=== PATIENT | male | born 1980 | race Two or more races ===

== ENCOUNTER 2019-01-29 21:12 | Emergency (ER) | payer SELFPAY ==
[2019-01-29] MEDS ORDERED: DIPH/PERTUSS(ACELL)/TETANUS VAC/PF 0.5 ML SYR (>=10YO) IM ONE (22:20)
[2019-01-30] MEDS ORDERED: LEVOFLOXACIN 750 MG TABLET PO ONE
--- NOTE | 2019-01-30 00:03 | ER Document Report ---
ED General - General Chief Complaint: Puncture Wound to Foot Stated Complaint: FEET PAIN Time Seen by Provider: 01/29/19 23:45 Primary Care Provider: HILLARY LEÓN MD [COMMUNITY BASED STAFF] - Follow up in 3-5 days Notes: Patient is a 38-year-old male diabetic that presents to the emergency department for chief complaint of puncture wounds to the feet. Patient states that he had stepped on a few nails by accident, and he did not feel them due to his diabetic neuropathy, 1 of him was in his foot for a few hours before he noticed that and had it removed. He was seen at urgent care, and given Rocephin, and started on Bactrim, this occurred on Friday afternoon, he states that his right foot, has been swollen and a little bit red since then so he decided come to the emergency department. He states he is not up-to-date with his tetanus does not recall the last when he did not get one at urgent care. He states he has not been able to keep down all the antibiotics due to nausea, and he had some vomiting associated as well. He denies noting any fevers, but did feel that he was a little bit hot, but denies chills. Denies any chest pain, shortness of breath, difficulty breathing, has not noticed any redness streaking up his leg, but the foot is red and swollen. He did clean the wounds at home, has not noticed any drainage from them. Past Medical History: Diabetes mellitus, peripheral neuropathy Past Surgical History: Hand surgery Social History: Denies tobacco, alcohol or drug use. Family History: Reviewed and noncontributory for presenting illness Allergies: Reviewed, see documented allergy list. REVIEW OF SYSTEMS: Other than noted above, the 12 point review of systems was reviewed with the patient and were negative, all pertinent findings are included in the HPI. PHYSICAL EXAMINATION: Vital signs reviewed, nursing noted reviewed. GENERAL: Well-appearing, well-nourished and in no acute distress. HEAD: Atraumatic, normocephalic. EYES: Eyes appear normal, extraocular movements intact, sclera anicteric, conjunctiva are normal. ENT: nares patent, oropharynx clear without exudates. Moist mucous membranes. NECK: Normal range of motion, supple without lymphadenopathy LUNGS: Breath sounds clear to auscultation bilaterally and equal. No wheezes rales or rhonchi. HEART: Regular rate and rhythm without murmurs ABDOMEN: Soft, nontender, normoactive bowel sounds. No rebound, guarding, or rigidity. No masses appreciated. EXTREMITIES: Both feet have small puncture wounds noted on the plantar aspect, that measure only a few millimeters in diameter, there is erythema and mild edema noted to the right foot, without lymphangitis up the leg, there is no leg swelling noted. The left lower extremity aside from his puncture wound is unremarkable. No drainage noted. The rest of his extremity exam is grossly unremarkable. NEUROLOGICAL: No focal neurological deficits. Moves all extremities spontaneously Motor and sensory grossly intact on exam. PSYCH: Normal mood, normal affect. SKIN: Warm, Dry, normal turgor, no rashes or lesions noted on exposed skin TRAVEL OUTSIDE OF THE [place] IN LAST 30 DAYS: No - Related Data Allergies/Adverse Reactions: No Known Allergies Allergy (Verified 03/02/13 15:51) Past Medical History - Social History Smoking Status: Never Smoker Family History: None, Reviewed & Not Pertinent Pulmonary Medical History: Denies: Hx Tuberculosis Endocrine Medical History: Reports: Hx Diabetes Mellitus Type 1 Renal/ Medical History: Reports: Hx Benign Prostatic Hyperplasia Past Surgical History: Denies: Hx Pacemaker - Immunizations Hx Diphtheria, Pertussis, Tetanus Vaccination: Yes Physical Exam - Vital signs Vitals: Temp Pulse Resp BP Pulse Ox 98.4 F 98 18 121/73 100 01/29/19 21:21 01/29/19 21:21 01/29/19 21:21 01/29/19 21:21 01/29/19 21:21 Course - Re-evaluation Re-evalutation: Patient seen and examined vital signs reviewed. imaging were ordered as appropriate for the patient's presenting symptoms and complaint, with consideration of any critical or life threatening conditions that may be associated with their obtained history and exam as noted above. Patient was treated with Levaquin 750 mg p.o. Results were reviewed when available and demonstrated x-rays demonstrated foreign body, but not in the area of where the patient's puncture wounds were, likely remote. Bones intact, no evidence of osteomyelitis. The patient was re-evaluated and was stable, will prescribe him Levaquin for 7 additional days, advised to discontinue the Bactrim, switching to a pseudomonal coverage, because he was wearing a shoe when this injury occurred. Patient was advised however that this could cause some hypoglycemia, and to monitor his blood sugars, due to the lawrence quinolone, and is also to monitor for any worsening of his symptoms and advised to return to the emergency department if his symptoms worsen, he is otherwise advised to follow-up with primary care. Evaluation was most consistent with cellulitis of the right foot, and puncture wounds. Results were discussed with the patient at this point, after careful consideration I feel that that patient can be discharged from the emergency department, the patient was educated treatments and reasons to return to the emergency department based on their presumed diagnosis as noted above, they were advised to followup with a primary care physician in 2-3 days. Patient was agreeable to plan of care. *Note is created using voice recognition software and may contain spelling, syntax or grammatical errors. Foot X-Ray 01/29/19 23:57 IMPRESSION: 1. No acute fracture 2. Small hyperdense foreign body in the soft tissues medial to the left posterior subtalar joint. 3. No foreign bodies in the right foot - Vital Signs Vital signs: Temp Pulse Resp BP Pulse Ox 98.1 F 89 17 112/72 100 01/30/19 01:56 01/30/19 01:56 01/30/19 01:56 01/30/19 01:56 01/30/19 01:56 Discharge - Discharge Clinical Impression: Puncture wound Cellulitis Qualifiers: Site of cellulitis: extremity Site of cellulitis of extremity: lower extremity Laterality: right Qualified Code(s): L03.115 - Cellulitis of right lower limb Condition: Stable Disposition: HOME, SELF-CARE Instructions: Puncture Wound ([facility]), Tetanus Immunization Given ([facility]) Additional Instructions: Please monitor your feet, check them at least once daily, to see if you are having any worsening swelling or redness, particular if you notice streaking up your leg, if you develop fever, or worsening symptoms or pain, do not hesitate to return to the emergency department, please call your primary care physician's office first thing on Friday to schedule an appointment to be seen. Please complete the entire course of antibiotics as directed. Prescriptions: Levofloxacin [Levaquin 750 mg Tablet] 750 mg PO DAILY #7 tablet Referrals: HILLARY LEÓN MD [COMMUNITY BASED STAFF] - Follow up in 3-5 days
--- NOTE | 2019-01-30 00:46 | RADIOLOGY REPORT (SQ) ---
EXAM DESCRIPTION: [facility]Lex: XR FOOT 3 OR MORE VIEWS BILATERAL Views: 3 views of each foot CLINICAL HISTORY: 38 years Male, puncture wounds both feet, nail. heel left foot and great toe of right foot COMPARISON: None. FINDINGS: Left: A triangular foreign body approximately 4 mm diameter projects in the soft tissues medial to the posterior subtalar joint. No soft tissue air. No acute fracture or dislocation. No focal cortical defects or periosteal reaction. Mild vascular calcifications are noted. Right: Negative for acute fracture, dislocation, or radiopaque foreign body. IMPRESSION: 1. No acute fracture 2. Small hyperdense foreign body in the soft tissues medial to the left posterior subtalar joint. 3. No foreign bodies in the right foot
[2019-01-30 01:57] VITALS: BP 112/72
== END 2019-01-30 01:57 | disposition home or self-care (01) ==
LOC: ER 21:12
DX: L03.115 Cellulitis of right lower limb (principal); S91.332A Puncture wound without foreign body, left foot, initial encounter; S91.331A Puncture wound without foreign body, right foot, initial encounter; W22.09XA Striking against other stationary object, initial encounter; E10.9 Type 1 diabetes mellitus without complications
CPT/HCPCS: 90471; 90715; 99283

== ENCOUNTER 2019-05-16 22:25 | Emergency (ER) | payer SELFPAY ==
[2019-05-16 23:16] LABS: ABSOLUTE EOSINOPHILS # (AUTO) 0.2 10^3/uL (0.0-0.6); ABSOLUTE LYMPHOCYTES (AUTO) 1.9 10^3/uL (0.5-4.7); ABSOLUTE MONOCYTES (AUTO) 0.4 10^3/uL (0.1-1.4); ABSOLUTE NEUT (AUTO) 6.5 10^3/uL (1.7-8.2); BASOPHILS % (AUTO) 0.5 % (0-2); HEMATOCRIT 38.1 % (37.9-51.0); HEMOGLOBIN 13.2 g/dL (13.5-17.0); LYMPHOCYTES % (AUTO) 21.1 % (13-45); MEAN CORPUSCULAR HGB CONC 34.6 g/dL (32.0-36.0); MEAN CORPUSCULAR VOLUME 87 fl (80-97); MONOCYTES % (AUTO) 4.8 % (3-13); PLATELET COUNT 243 10^3/uL (150-450); RED BLOOD COUNT 4.39 10^6/uL (4.35-5.55); RED CELL DISTRIBUTION WIDTH 13.1 % (11.5-14.0); SEGMENTED NEUTROPHILS % (AUTO) 71.6 % (42-78); TOTAL CELLS COUNTED % (AUTO) 100 %; WHITE BLOOD COUNT 9.1 10^3/uL (4.0-10.5)
[2019-05-16 23:35] LABS: ALBUMIN 3.2 g/dL (3.5-5.0); ALKALINE PHOSPHATASE 106 U/L (38-126); ANION GAP 9 (5-19); ASPARTATE AMINO TRANSFERASE 20 U/L (17-59); BILIRUBIN,TOTAL 0.4 mg/dL (0.2-1.3); BLOOD UREA NITROGEN 13 mg/dL (7-20); CARBON DIOXIDE 26 mmol/L (22-30); CHLORIDE 104 mmol/L (98-107); GLUCOSE 219 mg/dL (75-110); POTASSIUM 3.2 mmol/L (3.6-5.0); TOTAL PROTEIN 6.2 g/dL (6.3-8.2)
[2019-05-16 23:36] LABS: ALCOHOL < 10 mg/dL (NONE DETECTED)
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
[2019-05-16] MEDS ORDERED: NORMAL SALINE 1000 ML 1,000 ML IV ONE (23:45)
[2019-05-16] MEDS ORDERED: POTASSIUM CHLORIDE 10 MEQ TABLET.ER PO ONE (23:46)
[2019-05-17 00:16] LABS: APPEARANCE,URINE CLEAR; BILIRUBIN,URINE NEGATIVE (NEGATIVE); COLOR,URINE STRAW; GLUCOSE, URINE >=500 mg/dL (NEGATIVE); KETONES,URINE NEGATIVE (NEGATIVE); LEUKOCYTE ESTERASE,URINE NEGATIVE (NEGATIVE); NITRITE,URINE NEGATIVE (NEGATIVE); PROTEIN,URINE NEGATIVE (NEGATIVE); URINE SPECIFIC GRAVITY 1.017; UROBILINOGEN,URINE NEGATIVE mg/dL (<2.0)
[2019-05-17 00:36] LABS: URINE AMPHETAMINES SCREEN NEGATIVE; URINE BARBITURATES SCREEN NEGATIVE; URINE BENZODIAZEPINES SCREEN NEGATIVE; URINE COCAINE SCREEN NEGATIVE; URINE MARIJUANA (THC) SCREEN NEGATIVE; URINE METHADONE SCREEN NEGATIVE; URINE PHENCYCLIDINE SCREEN NEGATIVE
--- NOTE | 2019-05-17 00:42 | RADIOLOGY REPORT (SQ) ---
EXAM DESCRIPTION: X-ray two view chest. CLINICAL HISTORY: 38 years Male, Shortness of breath COMPARISON: 01/22/2012 TECHNIQUE: PA and Lateral views of the chest performed on 05/17/2019 at 12:21 AM FINDINGS: The lungs are well expanded and are clear. The costophrenic sulci are clear. There is no evidence of a pneumothorax. The cardiac silhouette is normal in size. The mediastinal contours are normal. No acute osseous abnormalities are identified. No focal soft tissue abnormalities are identified. IMPRESSION: No evidence of acute intrathoracic disease.
[2019-05-17] MEDS ORDERED: POTASSIUM CHLORIDE 10 MEQ TABLET.ER PO ONE (01:21)
[2019-05-17 05:31] VITALS: BP 138/83
--- NOTE | 2019-05-17 06:43 | EKG REPORT ---
SEVERITY:- NORMAL ECG - SINUS RHYTHM : Confirmed by: Lefty Abbott MD 17-May-2019 06:42:52
--- NOTE | 2019-05-18 22:36 | EKG REPORT ---
SEVERITY:- OTHERWISE NORMAL ECG - SINUS TACHYCARDIA LOW VOLTAGE IN FRONTAL LEADS : Confirmed by: Memo Arceo 18-May-2019 22:35:45
== END 2019-05-17 05:40 | disposition home or self-care (01) ==
LOC: ER 22:25
DX: E10.9 Type 1 diabetes mellitus without complications (principal); R55 Syncope and collapse; E87.6 Hypokalemia; R41.82 Altered mental status, unspecified; R11.0 Nausea; Z79.4 Long term (current) use of insulin
CPT/HCPCS: 93005; 99284; 96360; 36415; 82962; 80307 ×2; 82550; 83735; 85025; 80053; 81001; 84484; 71046; 93010; J7030

== ENCOUNTER 2020-04-01 18:38 | Emergency (ER) | payer SELFPAY ==
[~2020-04-01 18:38] MED LIST: ASPIRIN 81 MG TABLET, CHEWABLE ONE; CLOPIDOGREL BISULFATE 300 MG TABLET ONE; ENOXAPARIN SODIUM INJ 30 MG/0.3 ML DISP.SYRIN ONE; NITROGLYCERIN 0.4 MG/TAB 25 TAB/BOTTLE ONE; TENECTEPLASE INJ 50 MG KIT IV ONE
[2020-04-01] MEDS ORDERED: NITROGLYCERIN/D5W 50 MG/250 ML RTUINJ IV PRN (19:04)
[2020-04-01] MEDS ORDERED: MORPHINE SULFATE 10 MG/ML INJ IV ONE (19:05)
[2020-04-01] MEDS ORDERED: ONDANSETRON HCL INJ/PF 4 MG/2 ML SDV IV ONE (19:05)
--- NOTE | 2020-04-01 19:11 | ER Document Report ---
ED Cardiac - General Chief Complaint: Chest Pain Stated Complaint: CHEST PAIN/SHORTNESS OF BREATH Time Seen by Provider: 04/01/20 19:04 Mode of Arrival: Wheelchair Information source: Patient, Relative Notes: 39-year-old [place] male arrives by POV with his Pat who is main historian. Patient had an DE here 2 to 3 years ago here in [place]. He also had a stent placed while in [place] 2017. Both his mother and father have a significant heart history. Patient is a IDDM and takes Lantus 20 units daily. Patient has no history of hypertension. His reports no steroid use no Viagra Levitra or Cialis or any cocaine use or illegal anabolic's. Patient works on a [employer]. 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 Patient's vital signs are heart rate 112 tachycardia blood pressure 152/96 he is satting 90% on 2 L. He has 13 respirations per minute. Patient speaks good Portuguese. Patient advises his chest pain is left chest radiating to his left scapula and down his left a rm. He is a non-smoker nondrinker This patient complained of 10 out of 10 pain upon arrival and after medications at 1930 he has 4 out of 10 pain. He appears much more comfortable. TRAVEL OUTSIDE OF THE [place] IN LAST 30 DAYS: No - HPI Patient complains to provider of: Chest pain - Related Data Allergies/Adverse Reactions: No Known Allergies Allergy (Verified 05/16/19 22:46) Past Medical History - General Information source: Patient - Social History Smoking Status: Unknown if Ever Smoked Cigarette use (# per day): No Chew tobacco use (# tins/day): No Smoking Education Provided: No Frequency of alcohol use: None - to take Drug Abuse: None Family History: None, Reviewed & Not Pertinent Patient has suicidal ideation: No Patient has homicidal ideation: No Pulmonary Medical History: Denies: Hx Tuberculosis Endocrine Medical History: Reports: Hx Diabetes Mellitus Type 1 Renal/ Medical History: Reports: Hx Benign Prostatic Hyperplasia Past Surgical History: Reports: Hx Cardiac Catheterization. Denies: Hx Pacemaker - Immunizations Hx Diphtheria, Pertussis, Tetanus Vaccination: Yes Physical Exam - Vital signs Vitals: Resp BP Pulse Ox 18 152/96 H 100 04/01/20 19:05 04/01/20 19:05 04/01/20 19:05 Interpretation: Normal - General General appearance: Appears well, Alert - HEENT Head: Normocephalic, Atraumatic Eyes: Normal Pupils: PERRL - Respiratory Respiratory status: No respiratory distress Chest status: Nontender Breath sounds: Normal Chest palpation: Normal - Cardiovascular Rhythm: Regular Heart sounds: Normal auscultation Murmur: No - Abdominal Inspection: Normal Distension: No distension Bowel sounds: Normal Tenderness: Nontender Organomegaly: No organomegaly - Back Back: Normal, Nontender - Extremities General upper extremity: Normal inspection, Nontender, Normal color, Normal ROM, Normal temperature General lower extremity: Normal inspection, Nontender, Normal color, Normal ROM, Normal temperature, Normal weight bearing. No: Juan Miguel's sign - Neurological Neuro grossly intact: Yes Cognition: Normal Orientation: AAOx4 [place] Coma Scale Eye Opening: Spontaneous [place] Coma Scale Verbal: Oriented [place] Coma Scale Motor: Obeys Commands [place] Coma Scale Total: 15 Speech: Normal Motor strength normal: LUE, RUE, LLE, RLE Sensory: Normal - Psychological Associated symptoms: Normal affect, Normal mood - Skin Skin Temperature: Warm Skin Moisture: Dry Skin Color: Normal Course - Vital Signs Vital signs: Temp Pulse Resp BP Pulse Ox 98.6 F 16 116/95 H 97 04/01/20 19:35 04/01/20 20:07 04/01/20 20:07 04/01/20 20:07 - Laboratory Result Diagrams: 04/01/20 19:03 04/01/20 19:03 Laboratory results interpreted by me: 04/01/20 04/01/20 04/01/20 19:03 19:03 19:03 WBC 11.1 H RBC 4.03 L Hgb 12.4 L Hct 36.0 L Absolute Neuts (auto) 8.7 H APTT 36.6 H Sodium 136.1 L Chloride 97 L BUN 21 H Glucose 362 H POC Glucose AST 182 H Alkaline Phosphatase 138 H CK-MB (CK-2) 04/01/20 04/01/20 19:03 19:05 WBC RBC Hgb Hct Absolute Neuts (auto) APTT Sodium Chloride BUN Glucose POC Glucose 347 H AST Alkaline Phosphatase CK-MB (CK-2) 18.50 H - Diagnostic Test Radiology reviewed: Reports reviewed - EKG Interpretation by Me EKG shows normal: Sinus rhythm Rate: Normal Rhythm: NSR, Other - STEMI with ST elevation anterior leads and this was agreed by myself and the EKG machine. Inferior leads have some reciprocation. Critical Care Note - Critical Care Note Comments: I discussed this case with Dr. Banks at 1730 at [facility] and he a dvises 43 mg of TNKase. He did accept this patient Discharge - Discharge Clinical Impression: Chest pain at rest STEMI (ST elevation myocardial infarction) Qualifiers: Involved coronary artery: unspecified coronary artery Qualified Code(s): I21.3 - ST elevation (STEMI) myocardial infarction of unspecified site Condition: Serious Disposition: [facility]
[2020-04-01] MEDS: ASPIRIN 81 MG TABLET, CHEWABLE PO ONE ×2 (19:14→19:20)
[2020-04-01 19:27] LABS: ABSOLUTE LYMPHOCYTES (AUTO) 1.5 10^3/uL (0.5-4.7); ABSOLUTE MONOCYTES (AUTO) 0.9 10^3/uL (0.1-1.4); ABSOLUTE NEUT (AUTO) 8.7 10^3/uL (1.7-8.2); BASOPHILS % (AUTO) 0.2 % (0-2); EOSINOPHILS % (AUTO) 0.3 % (0-6); HEMOGLOBIN 12.4 g/dL (13.5-17.0); LYMPHOCYTES % (AUTO) 13.6 % (13-45); MEAN CORPUSCULAR HEMOGLOBIN 30.7 pg (27.0-33.4); MEAN CORPUSCULAR HGB CONC 34.3 g/dL (32.0-36.0); MEAN CORPUSCULAR VOLUME 90 fl (80-97); MONOCYTES % (AUTO) 7.9 % (3-13); PLATELET COUNT 266 10^3/uL (150-450); RED BLOOD COUNT 4.03 10^6/uL (4.35-5.55); RED CELL DISTRIBUTION WIDTH 12.6 % (11.5-14.0); TOTAL CELLS COUNTED % (AUTO) 100 %; WHITE BLOOD COUNT 11.1 10^3/uL (4.0-10.5)
[2020-04-01] MEDS ORDERED: ENOXAPARIN SODIUM INJ 100 MG/1 ML DISP.SYRIN SUBCUT SCH (19:30)
[2020-04-01 19:33] LABS: INTERNATIONAL RATION (INR) 0.94; PROTHROMBIN TIME 12.8 SEC (11.4-15.4)
[2020-04-01 19:34] LABS: ALBUMIN 4.1 g/dL (3.5-5.0); ALKALINE PHOSPHATASE 138 U/L (38-126); ANION GAP 12 (5-19); ASPARTATE AMINO TRANSFERASE 182 U/L (17-59); BILIRUBIN,TOTAL 0.9 mg/dL (0.2-1.3); BLOOD UREA NITROGEN 21 mg/dL (7-20); CALCIUM 9.6 mg/dL (8.4-10.2); CARBON DIOXIDE 27 mmol/L (22-30); CHLORIDE 97 mmol/L (98-107); GLUCOSE 362 mg/dL (75-110); PARTIAL THROMBOPLASTIN TIME 36.6 SEC (23.5-35.8); POTASSIUM 4.2 mmol/L (3.6-5.0); TOTAL PROTEIN 7.3 g/dL (6.3-8.2)
[2020-04-01 19:46] LABS: CREATINE KINASE MB 18.5 ng/mL (<4.55)
--- NOTE | 2020-04-01 19:51 | RADIOLOGY REPORT (SQ) ---
EXAM DESCRIPTION: CHEST SINGLE VIEW IMAGES COMPLETED DATE/TIME: 04/01/2020 6:32 pm REASON FOR STUDY: cp COMPARISON: None. EXAM PARAMETERS: NUMBER OF VIEWS: One view. TECHNIQUE: Single frontal radiographic view of the chest acquired. RADIATION DOSE: NA LIMITATIONS: None. FINDINGS: LUNGS AND PLEURA: No opacities, masses or pneumothorax. No pleural effusion. MEDIASTINUM AND HILAR STRUCTURES: No masses. Contour normal. HEART AND VASCULAR STRUCTURES: Heart normal in size. Normal vasculature. BONES: No acute findings. HARDWARE: None in the chest. OTHER: No other significant finding. IMPRESSION: NO ACUTE RADIOGRAPHIC FINDING IN THE CHEST. TECHNICAL DOCUMENTATION: JOB ID: [id number] 2010 [employer]- All Rights Reserved Reading location - IP/workstation name: [email or web address]
[2020-04-01 19:52] LABS: TROPONIN I 26.5 ng/mL
[2020-04-01 20:14] VITALS: BP 116/95
--- NOTE | 2020-04-01 21:57 | EKG REPORT ---
SEVERITY:- ABNORMAL ECG - SINUS TACHYCARDIA PROBABLE LEFT ATRIAL ABNORMALITY ANTERIOR INFARCT, ACUTE LATERAL LEADS ARE ALSO INVOLVED : Confirmed by: Lefty Abbott MD 01-Apr-2020 21:56:24
--- NOTE | 2020-04-01 21:57 | EKG REPORT ---
SEVERITY:- ABNORMAL ECG - SINUS TACHYCARDIA ANTERIOR INFARCT, ACUTE : Confirmed by: Lefty Abbott MD 01-Apr-2020 21:56:32
== END 2020-04-01 20:18 | disposition short-term general hospital (02) ==
LOC: ER 18:38
DX: I21.3 ST elevation (STEMI) myocardial infarction of unspecified site (principal); I25.2 Old myocardial infarction; E10.9 Type 1 diabetes mellitus without complications; Z79.4 Long term (current) use of insulin
CPT/HCPCS: 93005; 99285; 96372; 96375; 96365; 37195; 36415; 82553; 82962; 85025; 85610; 85730; 80053; 84484; 71045; 93010; J3101; J3490 ×2; J2270; J2405; J1650 ×2